=== PATIENT | female | born 1975 | race Two or more races ===

== ENCOUNTER 2017-11-28 14:10 | Emergency (ER) | payer SELFPAY ==
[~2017-11-28] VITALS: Ht 154.9 cm; Wt 83.9 kg
--- NOTE | 2017-11-28 15:11 | EKG ---
[facility] [address] [place] [address] Test Date: 2017-11-28 Test Time: 14:17:49 Pat Name: JIN OLSON Department: Room: Gender: F Senior Examiner: : 1975 Requested By: ROBERT AKTZ Order Number: [id number] Reading MD: Low Chow MD Measurements Intervals [place] Rate: 92 P: 24 MD: 116 QRS: 15 QRSD: 76 T: 38 QT: 350 QTc: 437 Interpretive Statements SINUS RHYTHM Electronically Signed On 11-29-2017 8:16:16 CDT by Low Chow MD
[2017-11-28 15:18] LABS: BASO % 1 % (0-3); EOS # 0.1 x10^3/uL (0.0-0.7); EOS % 1 % (0-3); HEMATOCRIT 36.2 % (36.0-47.0); HEMOGLOBIN 11.9 g/dL (12.0-15.5); LYMPH # 2.2 x10^3/uL (1.0-4.8); LYMPH % 32 % (24-48); MEAN CORPUSCULAR HEMOGLOBIN 27 pg (25-35); MEAN CORPUSCULAR HGB CONC 33 g/dL (31-37); MEAN CORPUSCULAR VOLUME 82 fL (79-100); MONO # 0.4 x10^3/uL (0.0-1.1); MONO % 6 % (0-9); NEUT % 60 % (31-73); PLATELET COUNT 284 x10^3/uL (140-400); RED BLOOD COUNT 4.44 x10^6/uL (3.50-5.40); RED CELL DISTRIBUTION WIDTH 15.6 % (11.5-14.5); WHITE BLOOD COUNT 6.8 x10^3/uL (4.0-11.0)
[2017-11-28 15:22] VITALS: BP 122/70
[2017-11-28 15:26] LABS: CALCIUM 8.7 mg/dL (8.5-10.1); GFR 60.2; POTASSIUM 4.3 mmol/L (3.5-5.1)
--- NOTE | 2017-11-28 15:27 | RAD ---
EXAM: Chest, 2 views. HISTORY: Paresthesia. COMPARISON: None. FINDINGS: 2 views of the chest are obtained. There is no infiltrate, pleural effusion or pneumothorax. The heart is normal in size. IMPRESSION: No acute pulmonary finding. Electronically signed by: Ashlee Mo MD (11/28/2017 3:24 PM) [place] [id number]
[2017-11-28 15:34] LABS: ALBUMIN 3.7 g/dL (3.4-5.0); ALBUMIN/GLOBULIN RATIO 0.9 (1.0-1.7); TOTAL BILIRUBIN 0.2 mg/dL (0.2-1.0); TOTAL PROTEIN 7.8 g/dL (6.4-8.2)
--- NOTE | 2017-11-28 15:36 | PHYS DOC ---
Past Medical History Past Medical History: No Pertinent History, Diabetes-Type II Past Surgical History: Cholecystectomy Alcohol Use: None Drug Use: None Adult General Chief Complaint Chief Complaint: CHEST PAIN HPI HPI 42 y/o female presents to ER for c/o mid CP heaviness which radiates into her lt arm. Pt speaks primary Divehi and her dgtr Celina is at bedside who is bilingual with [place]/jamaican. Discussed use of translation phone for communication and pt is not wanting to use phone preferring her dgtr communicate /translate. Per dgtr pt has had 3 mo. hx of intermittent mid chest heaviness. Pt reports since Monday sxs have been gradually worsening with exertional SOA and intermittent dizziness when sxs worsen. When this provider entered room pt' s PCP office was on the phone- AICHA Rosario at [facility] reported to this provider that pt had been evaluated at their office on 11/10 and had labs which showed NL TSH/T4- Calcium level was low at 8.4 and other CBC/BMP unremarkable- Hpylori was neg. She reports pt had went to their office for palpitations and lt leg swelling. Pt reports she took 81mg Aspirin this morning. She currently rates heaviness at 5/10. Pt denies any N/V/D, diaphoresis, abd pain, urinary sxs, or fever/chills. Pt reports intermittent leg swelling after work- denies any today. She denies any SOA currently. Pt works on an [employer] line and typically sits during shift. She denies smoking/alcohol. She reports she took driving trip to [place] in September otherwise no other travel. She reports paternal G'mother had MA at 92 y/o otherwise no other family CAD hx. Review of Systems Review of Systems Constitutional: Denies fever or chills [] Eyes: Denies change in visual acuity, redness, or eye pain [] HENT: Denies nasal congestion or sore throat [] Respiratory: Denies cough. Reports SOA w/exertion Cardiovascular: Reports mid chest heaviness radiating into lt arm. Reports previous palpitations- denies at time of exam GI: Denies abdominal pain, nausea, vomiting, bloody stools or diarrhea [] : Denies dysuria or hematuria [] Musculoskeletal: Denies back/neck pain or joint pain. Reports intermittent lt LE swelling x3 mo. Integument: Denies rash or skin lesions [] Neurologic: Denies headache, focal weakness or sensory changes [] All other systems were reviewed and found to be within normal limits, except as documented in this note. Current Medications Current Medications Current Medications Medications (Trade) Dose Ordered Sig/Sara Start Time Stop Time Status Last Admin Dose Admin Aspirin (Children'S Aspirin) 243 mg 1X ONCE 11/28/17 15:45 11/28/17 15:46 DC 11/28/17 15:11 243 MG Allergies Allergies Allergies Coded Allergies Type Severity Reaction Last Updated Verified No Known Drug Allergies 11/12/14 No Physical Exam Physical Exam Constitutional: Well developed, well nourished, no acute distress, non-toxic appearance. [] HENT: Normocephalic, atraumatic, bilateral ears normal, mucous membranes pink/ moist, no oral exudates, nose normal. [] Eyes: PERRLA, no nystagmus, conjunctiva normal, no discharge. [] Neck: Normal range of motion, no tenderness, supple, no gross adenopathy Cardiovascular:Heart rate regular rhythm, no murmur [] Lungs & Thorax: Bilateral breath sounds clear to auscultation. Resp. equal/ nonlabored. Reproducable mid chest tenderness on palp. No palp. deformity/ crepitus Abdomen: Bowel sounds normal, soft/nondistended, no tenderness, no masses, no pulsatile masses. [] Skin: Warm, dry, no erythema, no rash. [] Back: No tenderness, no CVA tenderness. [] Extremities: No tenderness, no cyanosis, no clubbing, ROM intact, no edema. Bilat. calf size symmetric Neurologic: Alert and oriented X 3, normal motor function, normal sensory function, no focal deficits noted. [] Psychologic: Affect normal, judgement normal, mood normal. [] Current Patient Data Vital Signs Vital Signs Date Time Temp Pulse Resp B/P (MAP) Pulse Ox O2 Delivery O2 Flow Rate FiO2 11/28/17 15:22 92 122/70 (87) 98 Room Air 11/28/17 14:19 98.0 16 98.0 Lab Values Laboratory Tests Test 11/28/17 15:00 White Blood Count 6.8 x10^3/uL (4.0-11.0) Red Blood Count 4.44 x10^6/uL (3.50-5.40) Hemoglobin 11.9 g/dL (12.0-15.5) L Hematocrit 36.2 % (36.0-47.0) Mean Corpuscular Volume 82 fL (79-100) Mean Corpuscular Hemoglobin 27 pg (25-35) Mean Corpuscular Hemoglobin Concent 33 g/dL (31-37) Red Cell Distribution Width 15.6 % (11.5-14.5) H Platelet Count 284 x10^3/uL (140-400) Neutrophils (%) (Auto) 60 % (31-73) Lymphocytes (%) (Auto) 32 % (24-48) Monocytes (%) (Auto) 6 % (0-9) Eosinophils (%) (Auto) 1 % (0-3) Basophils (%) (Auto) 1 % (0-3) Neutrophils # (Auto) 4.0 x10^3uL (1.8-7.7) Lymphocytes # (Auto) 2.2 x10^3/uL (1.0-4.8) Monocytes # (Auto) 0.4 x10^3/uL (0.0-1.1) Eosinophils # (Auto) 0.1 x10^3/uL (0.0-0.7) Basophils # (Auto) 0.0 x10^3/uL (0.0-0.2) D-Dimer (Serena) 0.73 ug/mlFEU (0.00-0.50) H Sodium Level 140 mmol/L (136-145) Potassium Level 4.3 mmol/L (3.5-5.1) Chloride Level 105 mmol/L (98-107) Carbon Dioxide Level 26 mmol/L (21-32) Anion Gap 9 (6-14) Blood Urea Nitrogen 11 mg/dL (7-20) Creatinine 1.0 mg/dL (0.6-1.0) Estimated GFR (Cockcroft-Gault) 60.2 BUN/Creatinine Ratio 11 (6-20) Glucose Level 92 mg/dL (70-99) Calcium Level 8.7 mg/dL (8.5-10.1) Magnesium Level 2.0 mg/dL (1.8-2.4) Total Bilirubin 0.2 mg/dL (0.2-1.0) Aspartate Amino Transferase (AST) 55 U/L (15-37) H Alanine Aminotransferase (ALT) 71 U/L (14-59) H Alkaline Phosphatase 102 U/L (46-116) Creatine Kinase 82 U/L (26-192) Creatine Kinase MB (Mass) 0.9 ng/mL (0.0-3.6) Creatine Kinase MB Relative Index 1.1 % (0-4) Troponin I Quantitative < 0.017 ng/mL (0.000-0.055) KT-Iqu-Y-Type Natriuretic Peptide 32 pg/mL (0-124) Total Protein 7.8 g/dL (6.4-8.2) Albumin 3.7 g/dL (3.4-5.0) Albumin/Globulin Ratio 0.9 (1.0-1.7) L Laboratory Tests 11/28/17 15:00 Laboratory Tests 11/28/17 15:00 EKG EKG EKG obtained 11/28/17 at [address] Gan Sinus rhythm Vent rate 92 Radiology/Procedures Radiology/Procedures EXAM: Chest, 2 views. HISTORY: Paresthesia. COMPARISON: None. FINDINGS: 2 views of the chest are obtained. There is no infiltrate, pleural effusion or pneumothorax. The heart is normal in size. IMPRESSION: No acute pulmonary finding. Electronically signed by: Ashlee Gregg MD (11/28/2017 3:24 PM) [place] [id number] DICTATED and SIGNED BY: ASHLEE GREGG MD DATE: 11/28/17 1523 Course & Med Decision Making Course & Med Decision Making Pertinent Labs and Imaging studies reviewed. (See chart for details) 1540: Discussed pt's case and plan of care with Dr. Gan- pt had no acute ST elevation/STEMI on EKG and troponin was <0.017; DDimer was above NL range at 0.73. Discussed presenting sxs and exam- pt scores 0 on PERC score he feels comfortable with no chest angio with pt having minimal risk. Following discussion plan is for home discharge with pt to keep cardiology appt on Monday. Education provided on s&s to return to ER for- pt reporting if sxs worsen she would return to ER. Pt reports she feels comfortable with home discharge with no additional tests. She is in no visible distress with equal/ nonlabored resp. VS stable with 99% RA sat and HR 80's. Discharge instructions discussed and education provided on s&s to return to ER for. On other labs pt had slight elevation in LFTs with AST 55 ALT 71- pt instructed to f/u with PCP for re-eval of these levels. Pt at time discharge reports her chest heaviness had improved- denying any SOA/ palpitations. Her dgtr reports she feels her mom overthinks and has some anxiety. Pt advised to continue daily 81mg aspirin. Dragon Disclaimer Dragon Disclaimer This electronic medical record was generated, in whole or in part, using a voice recognition dictation system. Departure Departure Impression: Primary Impression: Chest pain Additional Impression: Shortness of breath Disposition: HOME, SELF-CARE Condition: STABLE Referrals: NO PCP (PCP) Patient Instructions: Chest Pain (Nonspecific), Shortness of Breath Additional Instructions: Follow-up with your primary doctor for re-evaluation of your liver enzymes as they were slightly elevated on your test results. Return to ER if symptoms worsen Keep your appointment with the child care lead teacher as scheduled on Monday- keep taking your daily 81mg aspirin dose. Problem Qualifiers ROBERT KATZ APRN Nov 28, 2017 15:36
[2017-11-28] MEDS ORDERED: ASPIRIN CHEWABLE 81 MG TABLET. PO ONE (15:45)
== END 2017-11-28 16:15 | disposition home or self-care (01) ==
LOC: ER 14:10
DX: R07.89 Other chest pain (principal); R06.02 Shortness of breath; R42 Dizziness and giddiness; E11.9 Type 2 diabetes mellitus without complications; Z90.49 Acquired absence of other specified parts of digestive tract
CPT/HCPCS: 36415; 71046; 80053; 82553; 83735; 83880; 84484; 85025; 85379; 93005; 99285-25